=== PATIENT | female | born 1990 | race Caucasian/White ===

== ENCOUNTER 2017-01-17 10:32 | Emergency (ER) | payer OTHER ==
[2017-01-17 10:38] VITALS: O2SAT 95
[2017-01-17] MEDS ORDERED: KETOROLAC 30 MG/1 ML SDV IVP ONE (10:43)
[2017-01-17] MEDS ORDERED: NS 1,000 ML IV ONE (10:43)
--- NOTE | 2017-01-17 10:54 | EDPHY ---
H & P Stated Complaint: lightheaded, abdominal cramps, fevers starting Sunday, concernes re IUD Time Seen by Provider: 01/17/17 10:50 HPI/ROS: HPI: This is a 26-year-old female who presents with Chief Complaint: Lightheadedness, lower abdominal cramping Location: Lower bilateral abdomen Quality: Crampy Duration: Since Sunday Signs and Symptoms: no fever, no nausea, no vomiting, no hematemesis, no blood in stool, no abdominal bloating, + diarrhea, no back pain, no urinary symptoms, no testicular/groin pain, no indigestion, no dyspareunia, no vaginal bleeding, no vaginal discharge Timing: Sudden, improving Severity: Moderate Context: Patient reports that she was at work on Sunday and started to feel lightheaded and nauseous. She went home several hours later and laid in bed when she started to experience lower abdominal this is sudden onset constant deep cramping pain that was relieved with Midol. She reports on Sunday that the pain moved more to the left lower quadrant. She has been trying to drink fluids but reports a decreased appetite. Yesterday she experienced approximately 5-6 loose stools denies any blood. No loose stools today. 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 She admits that she has not had it checked since that time. Denies any recent sexual intercourse/ Trauma. Reports low-grade fevers but never took temperature. Denies neck stiffness/headache/cough/sore throat/urinary symptoms. Modifying Factors: Ibuprofen, Midol Comment: ROS: see HPI Constitutional: No fever, no chills, no weight loss Eyes: No blurred vision Respiratory: No shortness of breath, no cough Cardiovascular: No chest pain, no palpitations Gastrointestinal: No nausea, no vomiting, no diarrhea, no hematemesis, no blood in stool Genitourinary: No dysuria, no blood in urine Extremities: No myalgias, no edema Neurologic: No weakness, no numbness Skin: No rashes, no petechiae Hematologic: No bruising, no bleeding MEDICAL/SURGICAL/SOCIAL HISTORY: Medical history: Von Willebrand's Surgical history: EGD Social history: Employed CONSTITUTIONAL: Young adult white female who appears well, nontoxic in appearance, awake and alert, no obvious distress HEENT: Atraumatic and normocephalic, PERRL, EOMI. Tympanic membranes clear. Oropharynx clear, no exudate and moist pink mucosa. Airway patent. No lymphadenopathy. No meningismus. Cardiovascular: Normal S1/S2, regular rate, regular rhythm, without murmur rub or gallop. PULMONARY/CHEST: Symmetrical and nontender. Clear to auscultation bilaterally. Good air movement. No accessory muscle usage. ABDOMEN: Soft, nondistended, nontender, no rebound, no guarding, no peritoneal signs, no masses or organomegaly. No CVAT. PELVIC: normal external genitalia, very high riding cervix, cervical os was closed, 1 IUD string visualized, no cervical motion tenderness, no adnexal mass , no discharge, scant amount of dark blood noted. The exam was performed with a cardiology coordinator. EXTREMITIES: 2/2 pulses, strength 5/5, no deformities, no clubbing, no cyanosis or edema. NEUROLOGICAL: no focal neuro deficits. GCS 15. SKIN: Warm and dry, no erythema. no rash. Good capillary refill. Source: Patient Exam Limitations: No limitations - Personal History LMP (Females 10-55): IUD In Place Current Tetanus/Diphtheria Vaccine: Yes Current Tetanus Diphtheria and Acellular Pertussis (TDAP): Yes Tetanus Vaccine Date: < 10 years - Medical/Surgical History Hx Asthma: No Hx Chronic Respiratory Disease: No Hx Diabetes: No Hx Cardiac Disease: No Hx Renal Disease: No Hx Cirrhosis: No Hx Alcoholism: No Hx HIV/AIDS: No Hx Splenectomy or Spleen Trauma: No Other PMH: Von Willebrands - Social History Smoking Status: Never smoked Constitutional: Initial Vital Signs Temperature (C) 37.3 C 01/17/17 10:34 Heart Rate 80 01/17/17 10:34 Respiratory Rate 18 01/17/17 10:34 Blood Pressure 147/86 H 01/17/17 10:34 O2 Sat (%) 95 01/17/17 10:34 O2 Delivery Mode Room Air Allergies/Adverse Reactions: aspirin Allergy (Verified 01/17/17 10:34) sulfamethoxazole [From Bactrim] Allergy (Verified 01/17/17 10:34) trimethoprim [From Bactrim] Allergy (Verified 01/17/17 10:34) Home Medications: Medication Instructions Recorded Ondansetron Odt [Zofran Odt 4 mg 4 mg PO Q4 PRN #12 tab 01/17/17 (*)] Medical Decision Making - Diagnostics Imaging Results: Imaging Impressions Pelvic/Renal Ultrasound 01/17/17 10:43 Impression: 1. Appropriately-positioned intrauterine device. 2. There is a benign-appearing 13 mm simple right ovarian follicular cyst. There is a small amount of free fluid in the pelvic cul-de-sac, and no evidence of ovarian torsion. Findings were discussed with Vaishali Redman PA-C at 12:13, on 01/17/2017. ED Course/Re-evaluation: Urinalysis, labs, IV fluids, IV medications, pelvic ultrasound ordered Abdominal exam benign Pelvic exam performed; no vaginal discharge or indication for vaginal swabs. Labs reviewed completely within normal limits Called by radiologist who advises that there is a 13 mm right follicular ovarian cyst with a small amount of free fluid in the pelvis but no signs of ovarian torsion. Reassessed patient who reports that her abdominal pain is minimal. Passed p.o. trial prior to discharge. Urinalysis is unremarkable and negative. Differential Diagnosis: Abdominal pain in a female including but not limited to ovarian cyst, pelvic inflammatory disease, ovarian torsion, urinary tract infection, and appendicitis. - Data Points Laboratory Results: Laboratory Results 01/17/17 10:50 01/17/17 10:50 01/17/17 01/17/17 01/17/17 11:10 10:50 10:50 WBC RBC Hgb Hct MCV MCH MCHC RDW Plt Count MPV Neut % (Auto) Lymph % (Auto) Butts % (Auto) Eos % (Auto) Baso % (Auto) Nucleat RBC Rel Count Absolute Neuts (auto) Absolute Lymphs (auto) Absolute Monos (auto) Absolute Eos (auto) Absolute Basos (auto) Absolute Nucleated RBC Immature Gran % Immature Gran # VBG Lactic Acid 0.8 mmol/L mmol/L (0.7-2.1) Sodium Potassium Chloride Carbon Dioxide Anion Gap BUN Creatinine Estimated GFR Glucose Calcium Total Bilirubin Conjugated Bilirubin Unconjugated Bilirubin AST ALT Alkaline Phosphatase Total Protein Albumin Beta HCG, Qual NEGATIVE Urine Color PALE YELLOW Urine Appearance CLEAR Urine pH 6.0 (5.0-7.5) Ur Specific [place] 1.005 (1.002-1.030) Urine Protein NEGATIVE (NEGATIVE) Urine Ketones NEGATIVE (NEGATIVE) Urine Blood NEGATIVE (NEGATIVE) Urine Nitrate NEGATIVE (NEGATIVE) Urine Bilirubin NEGATIVE (NEGATIVE) Urine Urobilinogen NEGATIVE EU EU (0.2-1.0) Ur Leukocyte Esterase NEGATIVE (NEGATIVE) Urine Glucose NEGATIVE (NEGATIVE) 01/17/17 01/17/17 10:50 10:50 WBC 6.87 10^3/uL 10^3/uL (3.80-9.50) RBC 4.72 10^6/uL 10^6/uL (4.18-5.33) Hgb 15.4 g/dL g/dL (12.6-16.3) Hct 44.6 % % (38.0-47.0) MCV 94.5 fL fL (81.5-99.8) MCH 32.6 pg pg (27.9-34.1) MCHC 34.5 g/dL g/dL (32.4-36.7) RDW 11.6 % % (11.5-15.2) Plt Count 342 10^3/uL 10^3/uL (150-400) MPV 8.7 fL fL (8.7-11.7) Neut % (Auto) 70.7 % % (39.3-74.2) Lymph % (Auto) 21.0 % % (15.0-45.0) Butts % (Auto) 7.0 % % (4.5-13.0) Eos % (Auto) 0.6 % % (0.6-7.6) Baso % (Auto) 0.4 % % (0.3-1.7) Nucleat RBC Rel Count 0.0 % % (0.0-0.2) Absolute Neuts (auto) 4.86 10^3/uL 10^3/uL (1.70-6.50) Absolute Lymphs (auto) 1.44 10^3/uL 10^3/uL (1.00-3.00) Absolute Monos (auto) 0.48 10^3/uL 10^3/uL (0.30-0.80) Absolute Eos (auto) 0.04 10^3/uL 10^3/uL (0.03-0.40) Absolute Basos (auto) 0.03 10^3/uL 10^3/uL (0.02-0.10) Absolute Nucleated RBC 0.00 10^3/uL 10^3/uL (0-0.01) Immature Gran % 0.3 % % (0.0-1.1) Immature Gran # 0.02 10^3/uL 10^3/uL (0.00-0.10) VBG Lactic Acid Sodium 140 mEq/L mEq/L (134-144) Potassium 3.9 mEq/L mEq/L (3.5-5.2) Chloride 102 mEq/L mEq/L (97-110) Carbon Dioxide 25 mEq/l mEq/l (22-31) Anion Gap 13 mEq/L mEq/L (8-16) BUN 9 mg/dL mg/dL (7-23) Creatinine 0.8 mg/dL mg/dL (0.6-1.0) Estimated GFR > 60 Glucose 98 mg/dL mg/dL (70-100) Calcium 9.7 mg/dL mg/dL (8.5-10.4) Total Bilirubin 0.2 mg/dL mg/dL (0.1-1.4) Conjugated Bilirubin 0.1 mg/dL mg/dL (0.0-0.5) Unconjugated Bilirubin 0.1 mg/dL mg/dL (0.0-1.1) AST 20 IU/L IU/L (14-46) ALT 27 IU/L IU/L (9-52) Alkaline Phosphatase 39 IU/L IU/L (38-126) Total Protein 7.4 g/dL g/dL (6.3-8.2) Albumin 4.7 g/dL g/dL (3.5-5.0) Beta HCG, Qual Urine Color Urine Appearance Urine pH Ur Specific [place] Urine Protein Urine Ketones Urine Blood Urine Nitrate Urine Bilirubin Urine Urobilinogen Ur Leukocyte Esterase Urine Glucose Medications Given: Discontinued Medications Sodium Chloride (Ns) 1,000 mls @ 0 mls/hr IV ONCE ONE; Wide Open PRN Reason: Protocol Stop: 01/17/17 10:44 Last Admin: 01/17/17 10:52 Dose: 1,000 mls Ketorolac Tromethamine (Toradol) 30 mg IVP EDNOW ONE Stop: 01/17/17 10:44 Last Admin: 01/17/17 10:53 Dose: 30 mg Departure - Departure Disposition: Home, Routine, Self-Care Clinical Impression: Follicular cyst of right ovary, Viral syndrome Condition: Good Instructions: Ovarian Cyst (ED), Viral Syndrome (ED) Additional Instructions: Your labs and urinalysis are unremarkable and within normal limits. It appears that you have a virus causing your symptoms. Ultrasound shows that her Merina IUD is in the correct position. Please follow-up with your BEHAVIORAL GENETICIST within the next 1-2 weeks. It is recommended that she have a repeat pelvic ultrasound in 3 months to document stability and determine if there is interval change of your right follicular ovarian cyst. Please rest as much as possible and drink plenty of fluids to prevent dehydration. Referrals: Mily Alaniz PA [Physician Rn Hemodialysis] - As per Instructions Prescriptions: Ondansetron Odt [Zofran Odt 4 mg (*)] 4 mg PO Q4 PRN #12 tab PRN Reason: Nausea/Vomiting, Use 1st
[2017-01-17 10:57] LABS: % IMMATURE GRANULYOCYTES 0.3 % (0.0-1.1); ABSOLUTE IMMATURE GRANULOCYTES 0.02 10^3/uL (0.00-0.10); ADD DIFF? NO; ADD MORPH? NO; ADD SCAN? NO; ATYPICAL LYMPHOCYTE FLAG 30 (0-99); FRAGMENT RBC FLAG 0 (0-99); HEMATOCRIT 44.6 % (38.0-47.0); HEMOGLOBIN 15.4 g/dL (12.6-16.3); LEFT SHIFT FLG 0 (0-99); LIPEMIA HEMOLYSIS FLAG 90 (0-99); MEAN CELL HEMOGLOBIN 32.6 pg (27.9-34.1); MEAN CELL HEMOGLOBIN CONCENTR. 34.5 g/dL (32.4-36.7); MEAN CELL VOLUME 94.5 fL (81.5-99.8); MEAN PLATELET VOLUME 8.7 fL (8.7-11.7); PLATELET CLUMPS FLAG 20 (0-99); PLATELET COUNT 342 10^3/uL (150-400); RED BLOOD CELL COUNT 4.72 10^6/uL (4.18-5.33); RED CELL DISTRIBUTION WIDTH 11.6 % (11.5-15.2)
[2017-01-17 11:14] LABS: ALANINE AMINOTRANSFERASE 27 IU/L (9-52); ALBUMIN 4.7 g/dL (3.5-5.0); ALKALINE PHOSPHATASE 39 IU/L (38-126); ANION GAP 13 mEq/L (8-16); ASPARTATE AMINOTRANSFERASE 20 IU/L (14-46); BILIRUBIN,TOTAL 0.2 mg/dL (0.1-1.4); BILIRUBIN-CONJUGATED 0.1 mg/dL (0.0-0.5); BILIRUBIN-UNCONJUGATED 0.1 mg/dL (0.0-1.1); CALCIUM 9.7 mg/dL (8.5-10.4); CARBON DIOXIDE 25 mEq/l (22-31); CHLORIDE 102 mEq/L (97-110); CREATININE 0.8 mg/dL (0.6-1.0); GLOMERULAR FILTRATION RATE > 60; GLUCOSE 98 mg/dL (70-100); POTASSIUM 3.9 mEq/L (3.5-5.2); SODIUM 140 mEq/L (134-144); TOTAL PROTEIN 7.4 g/dL (6.3-8.2)
[2017-01-17 11:18] LABS: COLOR PALE YELLOW; LEUKOCYTE ESTERASE,URINE NEGATIVE (NEGATIVE); NITRITE,URINE NEGATIVE (NEGATIVE)
[2017-01-17 12:05] VITALS: BP 141/76; PULSE 58; RESP 16; TEMP 98.6
== END 2017-01-17 12:47 | disposition home or self-care (01) ==
DX: N83.01 Follicular cyst of right ovary (principal); B34.9 Viral infection, unspecified; E86.9 Volume depletion, unspecified
CPT/HCPCS: 96374; J1885